=== PATIENT | male | born 1975 | race Caucasian/White ===

== ENCOUNTER 2022-12-08 18:12 | Emergency (ER) | payer BC, SELFPAY ==
[2022-12-08 18:14] VITALS: BP 165/103; PULSE 76; RESP 16; TEMP 36.4; O2SAT 98; BMI 27.3
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
[2022-12-08] MEDS: MORPHINE 10 MG/ML inj IM (18:51)
[2022-12-08 19:05] VITALS: BP 141/99; PULSE 78; RESP 16
== END 2022-12-08 19:09 | disposition home or self-care (01) ==
PROVIDERS: Emergency Provider Emergency Medicine Emergency Medical Services
DX: M54.16 Radiculopathy, lumbar region (principal)
CPT/HCPCS: 96372; 99284; 99285; J2270